=== PATIENT | female | born 1995 | race Hispanic/Latino ===

== ENCOUNTER 2021-04-09 07:22 | Emergency (ER) | payer OTHER ==
[~2021-04-09] VITALS: Ht 154.9 cm; Wt 55.8 kg
[2021-04-09] MEDS ORDERED: ZOFRAN4 MG PO (07:45)
--- OUTSIDE RECORDS SUMMARY | 2021-04-09 08:22 | XMS ---
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 [place] - 2 Visits in 30 Days - 6 ED Visits in 6 Months CARE PROVIDERS There are no care providers on record at this time. [facility] has no Care Guidelines for this patient. E.DJayant VISIT COUNT (12 MO.) [address] [facility] NOTE: Visits indicate total known visits. ED/C VISIT TRACKING (12 MO.) [facility] COMPLAINT: - DEHYDRATED, ABD PAIN, COVID+ 04/08/2021 11:43 [facility] [place] TYPE: Emergency DIAGNOSES: - Periapical abscess without sinus - DENTAL PAIN 04/06/2021 08:19 [facility] [place] TYPE: Emergency DIAGNOSES: - COVID-19 - positive covid/dehydration - Hypokalemia 04/02/2021 20:51 [facility] [place] TYPE: Emergency DIAGNOSES: - COLD SWEATS - COVID-19 [facility] DIAGNOSES: - Other seasonal allergic rhinitis - ALLERGIES 12/30/2020 17:57 [facility] [place] TYPE: Emergency DIAGNOSES: - Chest pain, unspecified - rib and chest pain 11/16/2020 18:53 [facility] [place] TYPE: Emergency DIAGNOSES: - Right upper quadrant pain - ABD PAIN - Nausea INPATIENT VISIT TRACKING (12 MO.) No inpatient visits to display in this time frame [email or web address]
[2021-04-09] MEDS ORDERED: PROMETHAZINE HC25 M1 PO (08:54)
[2021-04-09] MEDS ORDERED: ONDANSETRON ODT8 MG PO (10:05)
== END 2021-04-09 10:45 | disposition home or self-care (01) ==
LOC: ED 07:22
DX: U07.1 COVID-19 (principal); K29.00 Acute gastritis without bleeding
CPT/HCPCS: 80053; 80500; 81001; 83735; 85025; 96374; 99284-25; J2550; J7030